=== PATIENT | male | born 1975 | race Caucasian/White ===

== ENCOUNTER 2016-12-20 12:20 | Inpatient (IN) | payer OTHER ==
[~2016-12-20] VITALS: Ht 167.6 cm; Wt 160.2 kg
[2016-12-20 13:07] LABS: BASOPHILS 0.1 % (0-2); EOSINOPHILS 0.6 % (0-7); HEMATOCRIT 50.3 % (42.0-54.0); HEMOGLOBIN 17.6 g/dL (13.5-17.5); IMMATURE GRANULOCYTES 0.3 % (0-5); LYMPHOCYTES 9.6 % (15-50); MCH 31.4 pg (26.0-34.0); MCV 89.8 fL (80.0-100.0); MEAN PLATELET VOLUME 9.7 fL (7.4-10.4); MONOCYTES 6.5 % (2-11); NEUTROPHILS 82.9 % (40-80); RDW 12.5 % (11.5-14.5); WBC 14.3 10x3/uL (4.8-10.8)
[2016-12-20 13:11] LABS: PLATELET COUNT 280 10x3/uL (130-400)
[2016-12-20 13:29] LABS: ALBUMIN 3.1 g/dL (3.4-5.0); ALKALINE PHOSPHATASE 105 U/L (46-116); ALT (SGPT) 46 U/L (10-68); CALC OSMOLALITY 273 mosm/kg (275-300); CALCIUM 8.8 mg/dL (8.5-10.1); CARBON DIOXIDE 25.4 mmol/L (21.0-32.0); CHLORIDE - SERUM 99 mmol/L (98-107); CREATININE - SERUM 0.9 mg/dL (0.6-1.3); GLUCOSE 155 mg/dL (74-106); POTASSIUM - SERUM 4.1 mmol/L (3.5-5.1); PROTEIN - SERUM 8.1 g/dL (6.4-8.2); SODIUM 135 mmol/L (136-145); UREA NITROGEN 15 mg/dL (7-18); eGFR NON AFRICAN AMERICAN > 90 mL/min (90-120)
[2016-12-20 14:01] LABS: AMYLASE - SERUM 24 U/L (25-115); LIPASE 105 U/L (73-393)
[2016-12-20 14:58] LABS: APPEARANCE CLEAR (CLEAR); BILIRUBIN NEGATIVE (NEGATIVE); COLOR DK YELLOW (YELLOW); GLUCOSE NEGATIVE (NEGATIVE); KETONE SMALL mg/dL (NEGATIVE); NITRITE NEGATIVE (NEGATIVE); PROTEIN TRACE mg/dL (NEGATIVE); UROBILINOGEN NORMAL (NORMAL)
[2016-12-20 15:00] LABS: BACTERIA FEW /hpf (NONE SEEN); MUCUS >1+ /lpf (NONE SEEN)
--- NOTE | 2016-12-20 19:20 | NUR ---
ORIENTED TO ROOM, IT SECURITY CONSULTANT SET UP FOR PAIN MANAGEMENT, CALL LIGHT IN REACH, BED LOWEST POSITION, WILL CONTINUE TO MONITOR
[2016-12-20] MEDS ORDERED: METOPROLOL TART50 MG PO (19:29)
[2016-12-20] MEDS ORDERED: ZESTRIL40 MG PO (19:29)
[2016-12-20 20:00] VITALS: BP 136/73
[2016-12-21 01:38] VITALS: BP 145/69; BMI 58.2
[2016-12-21 04:00] VITALS: BP 124/69
[2016-12-21 05:36] LABS: BASOPHILS 0.2 % (0-2); EOSINOPHILS 1.1 % (0-7); HEMATOCRIT 47.8 % (42.0-54.0); HEMOGLOBIN 16.2 g/dL (13.5-17.5); IMMATURE GRANULOCYTES 0.3 % (0-5); MCH 30.9 pg (26.0-34.0); MCHC 33.9 g/dL (31.0-37.0); MEAN PLATELET VOLUME 9.8 fL (7.4-10.4); MONOCYTES 9.9 % (2-11); NEUTROPHILS 70.5 % (40-80); PLATELET COUNT 253 10x3/uL (130-400); RBC 5.25 10x6/uL (4.20-6.10); RDW 12.8 % (11.5-14.5); WBC 11.4 10x3/uL (4.8-10.8)
[2016-12-21 06:03] LABS: CALC OSMOLALITY 276 mosm/kg (275-300); CALCIUM 8.5 mg/dL (8.5-10.1); CHLORIDE - SERUM 102 mmol/L (98-107); CREATININE - SERUM 0.9 mg/dL (0.6-1.3); GLUCOSE 139 mg/dL (74-106); SODIUM 137 mmol/L (136-145); UREA NITROGEN 14 mg/dL (7-18); eGFR NON AFRICAN AMERICAN > 90 mL/min (90-120)
[2016-12-21 10:18] VITALS: BP 160/98
[2016-12-21 10:57] VITALS: Ht 167.6 cm; Wt 160.2 kg
--- NOTE | 2016-12-21 11:00 | NUR ---
PATIENT SORTO REMOVED AT THIS TIME PER ORDERS.
[2016-12-21 12:17] VITALS: BP 125/58
--- NOTE | 2016-12-21 12:45 | NUR ---
PATIENT VOIDED ONLY SMALL AMOUNT. STATED HE WAS GOING TO TRY AGAIN IN THE SHOWER.
[2016-12-21 15:46] VITALS: BP 122/62
--- NOTE | 2016-12-21 18:50 | NUR ---
PATIENT IN BED WITH IV INTACT. NO COMPLAINTS AT THIS TIME. STATED HE WAS ABLE TO VOID MORE IN THE SHOWER. EXPLAINED TO PATIENT THAT HE WOULD NEED TO VOID IN URINAL SO WE COULD MEASURE. VERBALIZED UNDERSTANDING. CALL LIGHT WITHIN REACH.
--- NOTE | 2016-12-21 19:20 | NUR ---
RECIEVED SHIFT REPORT. PT IS LYING IN BED. ALERT AND ORIENTED AND ABLE TO VERBALIZE NEEDS. IV IS PATENT AND FLUIDS ARE RUNNING PER ORDER. PT IS AMBULATORY BUT WAS INSTRUCTED TO CALL FOR ANY ASSISTANCE NEEDED. PT STATES PAIN IS 8/10 WITH NUCLEAR MEDICINE OFFICER PUMP. NO NEEDS ARE VERBALIZED AT THIS TIME. WILL CONTINUE TO MONITOR. SIDE RAILS ARE UP X 2. BED IS IN LOWEST POSITION. CALL LIGHT IS WITHIN REACH.
[2016-12-21 20:00] VITALS: BP 127/69
--- NOTE | 2016-12-21 20:30 | NUR ---
SHIFT ASSESSMENT COMPLETED. PT STATUS REMAINS UNCHANGED. NO NEEDS ARE VOICED. WILL MONITOR. SIDE RAILS X 2. BED LOW. CALL LIGHT IN REACH.
[2016-12-22] VITALS: BP 131/79
[2016-12-22 04:00] VITALS: BP 140/71
[2016-12-22 05:58] LABS: BASOPHILS 0.2 % (0-2); EOSINOPHILS 2.2 % (0-7); HEMATOCRIT 46.4 % (42.0-54.0); HEMOGLOBIN 15.5 g/dL (13.5-17.5); IMMATURE GRANULOCYTES 0.4 % (0-5); LYMPHOCYTES 15.8 % (15-50); MCH 30.4 pg (26.0-34.0); MCHC 33.4 g/dL (31.0-37.0); MEAN PLATELET VOLUME 9.8 fL (7.4-10.4); MONOCYTES 10.5 % (2-11); NEUTROPHILS 70.9 % (40-80); PLATELET COUNT 267 10x3/uL (130-400); RDW 12.7 % (11.5-14.5); WBC 9.9 10x3/uL (4.8-10.8)
[2016-12-22 06:21] LABS: CALC OSMOLALITY 277 mosm/kg (275-300); CALCIUM 8.6 mg/dL (8.5-10.1); CHLORIDE - SERUM 102 mmol/L (98-107); CREATININE - SERUM 0.8 mg/dL (0.6-1.3); GLUCOSE 117 mg/dL (74-106); POTASSIUM - SERUM 4.1 mmol/L (3.5-5.1); SODIUM 138 mmol/L (136-145); UREA NITROGEN 14 mg/dL (7-18); eGFR NON AFRICAN AMERICAN > 90 mL/min (90-120)
--- NOTE | 2016-12-22 07:00 | NUR ---
REPORT RECIEVED ASSUMED CARE. PATIENT IN BED WITH IV INTACT. NO COMPLAINTS AT THIS TIME. CALL LIGHTW ITHIN REACH. FAMILY AT BEDSIDE.
[2016-12-22 08:09] VITALS: BP 143/72
[2016-12-22 12:51] VITALS: BP 142/69
[2016-12-22 15:36] VITALS: BP 114/75
--- NOTE | 2016-12-22 18:55 | NUR ---
PATIENT IN BED WITH IV INTACT. NO COMPLAINTS AT THIS TIME. CALL LIGHT WITHIN REACH.
--- NOTE | 2016-12-22 19:30 | NUR ---
RECIEVED SHIFT REPORT. PT IS LYING IN BED. ALERT AND ORIENTED AND ABLE TO VERBALIZE NEEDS. IV IS PATENT AND FLUIDS ARE RUNNING PER ORDER. PT IS AMBULATORY BUT WAS INSTRUCTED TO CALL FOR ANY ASSISTANCE NEEDED. PT STATES PAIN IS 7/10 WITH ECOLOGICAL MODELER PUMP. NO NEEDS ARE VERBALIZED AT THIS TIME. WILL CONTINUE TO MONITOR. SIDE RAILS ARE UP X 2. BED IS IN LOWEST POSITION. CALL LIGHT IS WITHIN REACH.
[2016-12-22 20:00] VITALS: BP 150/73
--- NOTE | 2016-12-22 20:05 | NUR ---
SHIFT ASSESSMENT COMPLETED. PT STATUS REMAINS UNCHANGED. NO NEEDS ARE VOICED. WILL MONITOR. SIDE RAILS X 2. BED LOW. CALL LIGHT IN REACH.
[2016-12-23] VITALS: BP 143/78
[2016-12-23 08:11] VITALS: BP 147/76
--- NOTE | 2016-12-23 08:15 | NUR ---
ASSESSMENT PER FLOW SHEET.PT WITHOUT DISTRESS. HE DENIES PAIN AT PRESENT.CALL LIGHT IN REACH.MONITOR FOR NEEDS
[2016-12-23 08:59] LABS: CALC OSMOLALITY 270 mosm/kg (275-300); CALCIUM 8.3 mg/dL (8.5-10.1); CARBON DIOXIDE 27.5 mmol/L (21.0-32.0); CHLORIDE - SERUM 101 mmol/L (98-107); CREATININE - SERUM 0.8 mg/dL (0.6-1.3); GLUCOSE 103 mg/dL (74-106); POTASSIUM - SERUM 3.9 mmol/L (3.5-5.1); SODIUM 136 mmol/L (136-145); UREA NITROGEN 11 mg/dL (7-18); eGFR NON AFRICAN AMERICAN > 90 mL/min (90-120)
[2016-12-23 09:16] LABS: BASOPHILS 0.2 % (0-2); EOSINOPHILS 3.1 % (0-7); HEMATOCRIT 45.4 % (42.0-54.0); HEMOGLOBIN 15.4 g/dL (13.5-17.5); IMMATURE GRANULOCYTES 0.4 % (0-5); LYMPHOCYTES 18.6 % (15-50); MCH 30.6 pg (26.0-34.0); MCHC 33.9 g/dL (31.0-37.0); MCV 90.3 fL (80.0-100.0); MEAN PLATELET VOLUME 9.7 fL (7.4-10.4); MONOCYTES 9.3 % (2-11); NEUTROPHILS 68.4 % (40-80); PLATELET COUNT 288 10x3/uL (130-400); RBC 5.03 10x6/uL (4.20-6.10); RDW 12.5 % (11.5-14.5); WBC 8.2 10x3/uL (4.8-10.8)
--- NOTE | 2016-12-23 10:41 | NUR ---
NUTRITION F/U CHART REVIEWED, PT CONTINUES NPO S/P SURGERY. WILL PROVIDE DIET WHEN ADVANCED, MONITOR PO INTAKE. RD FOLLOWING
[2016-12-23 15:43] VITALS: BP 150/68
--- NOTE | 2016-12-23 19:36 | NUR ---
REMAINS WITHOUT NEEDS,WITHOUT CHANGE.CONT PLAN OF CARE
[2016-12-23 20:00] VITALS: BP 152/92
--- NOTE | 2016-12-23 20:17 | NUR ---
PATIENT RESTING IN BED AND DENIES NEEDS AT THIS TIME. BED IN LOWEST POSITION AND CALL LIGHT WITHIN REACH. ENCOURAGED THE PATIENT TO CALL IF HE HAS NEEDS.
[2016-12-24] VITALS: BP 145/86
[2016-12-24 04:00] VITALS: BP 123/59
--- NOTE | 2016-12-24 08:00 | NUR ---
ASSESSMENT PER FLOW SHEET.PT WITHOUT DISTRESS.DENIES NEEDS AT PRESENT.CALL LIGHT IN REACH
[2016-12-24 08:02] VITALS: BP 124/75
--- NOTE | 2016-12-24 12:18 | NUR ---
Patient Name: FROY ENAMORADO Admission Status: ER Accout number: [id number] Admission Date: 12-20-2016 : 1975 Admission Diagnosis:DVTRCLI OF INTEST, PART UNSP, W PERF AND ABSCESS W/O BL Attending: LOGAN KRAUSE Current LOS: 4 Anticipated DC Date: Planned Disposition: Home Primary Insurance: [employer] Discharge Planning Comments: CM MET WITH PATIENT TO ASSESS DISCHARGE PLANNING NEEDS. PATIENT LIVES INDEPENDENTLY AT HOME WITH HIS . HE PLANS FOR HIS TO DRIVE HIM HOME AT DISCHARGE. PATIENT DENIES ANY HH SERVICES, BUT USES A CPAP MACHINE. AT THIS TIME PATIENT DENIES ANY NEEDS FROM CM. CM WILL CONTINUE TO FOLLOW AND ASSIST WITH DISCHARGE PLANNING NEEDS. PCP: [facility] PATIENT Sheet Metal Worker Apprentice: Vane Acuña * Is the patient Alert and Oriented? Yes 0 * How many steps to enter\exit or inside your home? 0 0 * PCP [facility] 0 * [facility] [address] 0 * Preadmission Environment Home with Family 0 * ADLs Independent 0 * Equipment CPAP 0 * List name and contact numbers for known caregivers / representatives who currently or will assist patient after discharge: PATRIC ENAMORADO () [phone] * Community resources currently utilized None 0 * Additional services required to return to the preadmission environment? No 0 * Can the patient safely return to the preadmission environment? Yes 0 * Has this patient been hospitalized within the prior 30 days at any hospital? No 0 Grand Total: 0
[2016-12-24 12:26] VITALS: BP 145/83
--- NOTE | 2016-12-24 13:45 | NUR ---
REMAINS WITHOUT NEEDS,TOLERATING DIET.CONT TO MONITOR
[2016-12-24 15:51] VITALS: BP 137/78
--- NOTE | 2016-12-24 18:01 | NUR ---
UP TO SHOWER . COMPLAINS OF SOME ABDOMINAL CRAMPING OCCASIONALY. WITHOUT CHNAGE FROM INITIAL SHIFT ASSESSMENT CONT PLAN OF CARE
--- NOTE | 2016-12-24 20:10 | NUR ---
ALERT,ORIENTED. NO COMPLAINTS OF PAIN AT PRESENT. SL TO LEFT HAND INTACT WIHTHOUT REDNESS OR EDEMA NOTED. FAMILY AT BEDSIDE. CL IN REACH
[2016-12-25] VITALS: BP 145/75
--- NOTE | 2016-12-25 03:38 | NUR ---
PT RESTING QUIETLY, EYES CLOSED. RESP EVEN, UNLABORED. NO DISTRESS NOTED. CONTINUE GALLERY MANAGER'S PLAN OF CARE.
[2016-12-25 04:00] VITALS: BP 140/62
--- NOTE | 2016-12-25 05:22 | NUR ---
NO CHANGE IN ASSESSMENT. CL IN REACH
--- NOTE | 2016-12-25 07:56 | NUR ---
PATIENT IS RESTING IN HIS BED. FAMILY AT PATIENT'S BEDSIDE. PATIENT IS AWAKE, ALERT, AND ORIENTED X4. PATIENT DENIES ANY PAIN AT PRESENT TIME. PATIENT STATES HE IS GOING HOME TODAY. CALL LIGHT IN PATIENT'S REACH. PATIENT DENIES ANY NEEDS AT PRESENT TIME. WILL MONITOR PATIENT FOR ANY NEEDS.
[2016-12-25 09:38] VITALS: BP 143/78
--- NOTE | 2016-12-25 14:45 | NUR ---
SALINE LOCK DC'D FROM PATIENT'S LEFT HAND WITH THE CATHETER TIP STILL INTACT. BANDAID APPLIED.
--- NOTE | 2016-12-25 16:00 | NUR ---
DISCHARGE INSTRUCTIONS VERBALIZED TO PATIENT. PATIENT VERBALIZED UNDERSTANDING AND SIGNED DISCHARGE SHEETS. PATIENT DISCHARGED VIA WHEELCHAIR TO PRIVATE VEHICLE. PATIENT'S HERE TO DRIVE PATIENT HOME.
--- NOTE | 2017-02-04 08:01 | DS ---
PATIENT:FROY ENAMORADO :[birth year] MEDICAL RECORD: [id number] DISCHARGE SUMMARY ADMISSION DATE: 12/20/16 DISCHARGE DATE: 12/25/16 DATE OF ADMISSION: 12/20/2016. DATE OF DISCHARGE: 12/25/2016. ADMISSION DIAGNOSES: 1. Diverticulitis of the colon with perforation. 2. Hypertension. DISCHARGE DIAGNOSES: 1. Diverticulitis of the colon with perforation. 2. Hypertension. CONSULTATIONS: None. SURGERIES: None. REPORT OF HOSPITALIZATION: The patient was admitted to the hospital through the Emergency Room with CT findings of a possible abscess in the mid abdomen. It was near the small bowel and the sigmoid colon. There were noted this definitive signs of diverticula, but the feeling was this was likely diverticular disease. The patient was placed back on IV metoprolol for his high blood pressure and was started on IV antibiotics and given bowel rest. There were no signs of any extravasation of contrast on the CT scan to make us think that this was a small bowel perforation, but their readings and CT scan were concerning for this. The patient had no known family history of Crohn's disease and no personal history of chronic diarrhea. The patient was monitored over the next few days and he quickly began to feel better and was passing flatus. He had no diarrhea during his hospitalization. Eventually, we did a small bowel follow through and this showed evidence of wall and mucosal thickening involving the central loop of the lower small bowel compatible with what was found on the CT scan at admission. Again, there was no sign of any leak of contrast. The patient was then started on a clear liquid diet. He was able to tolerate his diet with no nausea or vomiting. He was continuing to have bowel function. On final day of admission, he was doing well with no signs of any abdominal discomfort. He was tolerating a regular diet and having bowel function and felt to be stable for discharge home at that point. We arranged follow up with GI after his hospitalization. DISCHARGE INSTRUCTIONS: Return to clinic or call with any questions or concerns, fevers, chills, nausea, vomiting, or worsening abdominal pain. ACTIVITIES: As tolerated. FOLLOWUP: With GI and with Dr. Krause. DISCHARGE MEDICATIONS: Lisinopril and metoprolol. TRANSINT:[id number] Voice Confirmation ID: [id number] DOCUMENT ID: [id number] DISCHARGE SUMMARY REPORT [id number] FROY ENAMORADO CHRISTIAN MD at 0801 CC: [id number] DICTATION DATE: 01/27/17 1525 LAW ENFORCEMENT INSTRUCTOR: 01/27/17 1546 DIS IN 12/25/16 [id number] [place] [address]
== END 2016-12-25 16:00 | disposition home or self-care (01) | DRG 392 ==
LOC: D.ER 12:20 → D.MS 17:01
PROVIDERS: Family Medicine; Physician Assistant; ADMIT Surgery
DX: K57.80 Diverticulitis of intestine, part unspecified, with perforation and abscess without bleeding (principal); Z68.43 Body mass index [BMI] 50.0-59.9, adult; I10 Essential (primary) hypertension; E66.01 Morbid (severe) obesity due to excess calories